=== PATIENT | male | born 1965 | race Caucasian/White ===

== ENCOUNTER 2021-08-26 09:24 | Inpatient (IN) | payer BC ==
[2021-08-26 09:59] LABS: Absolute Lymphocytes (CBC) 1.5 K/uL (0.7-4.9); Hematocrit 42.6 % (39.6-49.0); Lymphocytes % 17.2 % (15.3-44.8); MPV 9.4 fL (7.6-11.3); Protime INR 0.97; RBC Red Blood Cell Count 4.56 M/uL (4.33-5.43)
[2021-08-26 10:15] LABS: Albumin 2.8 g/dL (3.4-5.0); Bilirubin Direct 0.1 mg/dL (0-0.2); Bilirubin Total 0.5 mg/dL (0.2-1.0); Magnesium 2.3 mg/dL (1.8-2.4); Potassium 3.7 mmol/L (3.5-5.1); Protein, Total 7.2 g/dL (6.4-8.2)
[2021-08-26 10:17] LABS: Troponin High Sensitivity 5877.5 pg/mL (<58.9)
--- NOTE | 2021-08-26 10:24 | EDPHYS ---
Physician Documentation [facility] Name: Tano You Age: 56 yrs Sex: Male : 1965 Arrival Date: 08/26/2021 Time: 09:27 Bed 30 Private MD: Yuniel Whaley ED Physician Pravin Boles HPI: 08/26 10:24 This 56 yrs old Male presents to ER via Ambulatory with complaints of Abnormal Stress kdr Test. 10:24 Patient states that this last Sunday at about 10 PM he started to have some left-sided kdr chest discomfort it was mild in nature. He did not take any action at that time but did go to bed and when he awoke the next morning he was still having the chest discomfort. That pain lasted until about 10 AM that day so total of about 12 hours. Since then he has had no further chest pain but did present to Dr. Butcher's office earlier today with that history. Dr. 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 Number nonspecific ST changes. Dr. Butcher sent the patient to the ED for further evaluation and admission. His plan was to take the patient to the General Sales Manager this afternoon at 3 PM. The patient on initial presentation is nontoxic and not in any acute distress is having no pain at this time. At worst, the pain was about an 8 out of 10 on Sunday. Again at this time pain is 0 out of 10. Onset: The symptoms/episode began/occurred This week. Severity of symptoms: At their worst the symptoms were severe On Sunday evening, in the emergency department the symptoms have resolved Sunday morning at 10 AM. The patient has not experienced similar symptoms in the past. The patient has been recently seen by a physician: Patient was seen in Dr. Butcher's office this morning and sent to the ED for admission. Historical: - Allergies: 09:41 No Known Allergies; ap3 - PMHx: 09:41 Diabetes mellitus; ap3 - Immunization history:: Client reports receiving the 2nd dose of the Covid vaccine. - Social history:: Smoking status: Patient denies any tobacco usage or history of. ROS: 10:24 Constitutional: Negative for fever, chills, and weight loss, Eyes: Negative for injury, kdr pain, redness, and discharge, ENT: Negative for injury, pain, and discharge, Neck: Negative for injury, pain, and swelling, Respiratory: Negative for shortness of breath, cough, wheezing, and pleuritic chest pain, Abdomen/GI: Negative for abdominal pain, nausea, vomiting, diarrhea, and constipation, Back: Negative for injury and pain, : Negative for injury, bleeding, discharge, and swelling, MS/Extremity: Negative for injury and deformity, Skin: Negative for injury, rash, and discoloration, Neuro: Negative for headache, weakness, numbness, tingling, and seizure activity. Psych: Negative for depression, anxiety, suicide ideation, homicidal ideation, and hallucinations, Allergy/Immunology: Negative for hives, rash, and allergies, Endocrine: Negative for neck swelling, polydipsia, polyuria, polyphagia, and marked weight changes, Hematologic/Lymphatic: Negative for swollen nodes, abnormal bleeding, and unusual bruising. 10:24 Cardiovascular: Positive for chest pain, Negative for edema, orthopnea, palpitations, paroxysmal nocturnal dyspnea. Exam: 10:24 Constitutional: This is a well developed, well nourished patient who is awake, alert, kdr and in no acute distress. Head/Face: Normocephalic, atraumatic. Eyes: Pupils equal round and reactive to light, extra-ocular motions intact. Lids and lashes normal. Conjunctiva and sclera are non-icteric and not injected. Cornea within normal limits. Periorbital areas with no swelling, redness, or edema. Neck: Trachea midline, no thyromegaly or masses palpated, and no cervical lymphadenopathy. Supple, full range of motion without nuchal rigidity, or vertebral point tenderness. No Meningismus. Chest/axilla: Normal chest wall appearance and motion. Nontender with no deformity. No lesions are appreciated. Cardiovascular: Regular rate and rhythm with a normal S1 and S2. No gallops, murmurs, or rubs. Normal PMI, no JVD. No pulse deficits. Respiratory: Lungs have equal breath sounds bilaterally, clear to auscultation and percussion. No rales, rhonchi or wheezes noted. No increased work of breathing, no retractions or nasal flaring. Abdomen/GI: Soft, non-tender, with normal bowel sounds. No distension or tympany. No guarding or rebound. No evidence of tenderness throughout. Back: No spinal tenderness. No costovertebral tenderness. Full range of motion. Skin: Warm, dry with normal turgor. Normal color with no rashes, no lesions, and no evidence of cellulitis. MS/ Extremity: Pulses equal, no cyanosis. Neurovascular intact. Full, normal range of motion. Neuro: Awake and alert, GCS 15, oriented to person, place, time, and situation. Cranial nerves II-XII grossly intact. Motor strength 5/5 in all extremities. Sensory grossly intact. Cerebellar exam normal. Normal gait. Psych: Awake, alert, with orientation to person, place and time. Behavior, mood, and affect are within normal limits. Vital Signs: 09:39 BP 137 / 80; Pulse 98; Resp 17; Temp 98.8; Pulse Ox 98% on R/A; Weight 78.93 kg; Height ap3 5 ft. 5 in. (165.10 cm); 09:49 BP 121 / 76; Pulse 94; Resp 18; Pulse Ox 97% ; Pain 0/10; jh6 09:39 Body Mass Index 28.95 (78.93 kg, 165.10 cm) ap3 MDM: 10:24 Patient medically screened. kdr 10:24 Data reviewed: vital signs, nurses notes, lab test result(s), EKG, radiologic studies. kdr Counseling: I had a detailed discussion with the patient and/or guardian regarding: the historical points, exam findings, and any diagnostic results supporting the discharge/admit diagnosis, lab results, radiology results, the need for further work-up and treatment in the hospital. Physician consultation: Estiven Butcher MD and will see patient in ED. 08/26 09:42 Order name: Basic Metabolic Panel; Complete Time: 10:18 kdr 08/26 09:42 Order name: CBC with Diff; Complete Time: 10:18 kdr 08/26 09:42 Order name: LFT's; Complete Time: 10:18 kdr 08/26 09:42 Order name: Magnesium; Complete Time: 10:18 kdr 08/26 09:42 Order name: NT PRO-BNP; Complete Time: 10:18 kdr 08/26 09:42 Order name: PT-INR; Complete Time: 10:18 kdr 08/26 09:42 Order name: Troponin HS; Complete Time: 10:18 kdr 08/26 09:42 Order name: XRAY Chest (1 view) [facility] 08/26 09:42 Order name: EKG; Complete Time: 09:43 kdr 08/26 09:50 Order name: COVID-19/FLU A+B (Document "Date of Onset" if Symptomatic) jl7 08/26 10:27 Order name: CONS Physician Consult [facility] 08/26 10:27 Order name: Heart Healthy [facility] 08/26 10:27 Order name: Echo with Doppler [facility] 08/26 13:49 Order name: Glucose, Ancillary Testing [facility] 08/26 09:42 Order name: Cardiac monitoring; Complete Time: 09:42 kdr 08/26 09:42 Order name: EKG - Nurse/Tech; Complete Time: 09:42 kdr 08/26 09:42 Order name: IV Saline Lock; Complete Time: 10:04 kdr 08/26 09:42 Order name: Labs collected and sent; Complete Time: 10:04 kdr 08/26 09:42 Order name: O2 Per Protocol; Complete Time: 09:42 kdr 08/26 09:42 Order name: O2 Sat Monitoring; Complete Time: 09:42 kdr Administered Medications: No medications were administered Disposition Summary: 08/26/21 10:24 Hospitalization Ordered Hospitalization Status: Inpatient Admission kdr Provider: Judith Zavala Location: Telemetry/MedSurg (Inpatient) kdr Condition: Fair kdr Problem: an ongoing problem kdr Symptoms: are unchanged kdr Bed/Room Type: Standard kdr Room Assignment: kdr Diagnosis - Subsequent non-ST elevation (NSTEMI) myocardial infarction kdr Forms: - Medication Reconciliation Form kdr - SBAR form kdr Signatures: Dispatcher [employer] [facility] Pravin Boles MD MD kdr Lory Monroy RN RN ap3
--- NOTE | 2021-08-26 10:24 | ER ---
Nurse's Notes [facility] Name: Tano You Age: 56 yrs Sex: Male : 1965 Arrival Date: 08/26/2021 Time: 09:27 Bed 30 Private MD: Yuniel Whaley Diagnosis: Subsequent non-ST elevation (NSTEMI) myocardial infarction Presentation: 08/26 09:39 Chief complaint: Patient states: they were sent from their cardiologists office for an ap3 abnormal EKG. Patient denies chest pain and shortness of breath at this time. Coronavirus screen: At this time, the client does not indicate any symptoms associated with coronavirus-19. Ebola Screen: No symptoms or risks identified at this time. Initial Sepsis Screen: Does the patient meet any 2 criteria? No. Patient's initial sepsis screen is negative. Does the patient have a suspected source of infection? No. Patient's initial sepsis screen is negative. Risk Assessment: Do you want to hurt yourself or someone else? Patient reports no desire to harm self or others. Onset of symptoms was August 26, 2021. 09:39 Method Of Arrival: Ambulatory ap3 09:39 Acuity: LOREN 3 ap3 Triage Assessment: 09:42 General: Appears in no apparent distress. Behavior is calm, cooperative, appropriate ap3 for age. Pain: Denies pain. Neuro: Level of Consciousness is awake, alert, obeys commands, Oriented to person, place, time, situation, Moves all extremities. Gait is steady, Speech is normal. Cardiovascular: Patient's skin is warm and dry. Respiratory: Airway is patent Respiratory effort is even, unlabored. Historical: - Allergies: 09:41 No Known Allergies; ap3 - PMHx: 09:41 Diabetes mellitus; ap3 - Immunization history:: Client reports receiving the 2nd dose of the Covid vaccine. - Social history:: Smoking status: Patient denies any tobacco usage or history of. Screenin:41 Abuse screen: Denies threats or abuse. Nutritional screening: No deficits noted. ap3 Tuberculosis screening: No symptoms or risk factors identified. 09:50 Fall Risk None identified. IV access (20 points). jh6 Assessment: 09:48 General: Appears in no apparent distress. Behavior is calm, cooperative, Smells of. jh6 Pain: Denies pain. Cardiovascular: No deficits noted. Reports chest pain, heartburn was noted Sunday night and sent over to hospital this am after going in for stress test and ekg noted to be abnormal. Vital Signs: 09:39 BP 137 / 80; Pulse 98; Resp 17; Temp 98.8; Pulse Ox 98% on R/A; Weight 78.93 kg; Height ap3 5 ft. 5 in. (165.10 cm); 09:49 BP 121 / 76; Pulse 94; Resp 18; Pulse Ox 97% ; Pain 0/10; jh6 09:39 Body Mass Index 28.95 (78.93 kg, 165.10 cm) ap3 Vitals: 09:49 Cardiac Rhythm Assessment Regular. 6 ED Course: 09:27 Patient arrived in ED. mr 09:27 Yuniel Whaley MD is Private Physician. mr 09:34 Olga Parr, NICK is Primary Nurse. jh6 09:41 Triage completed. ap3 09:41 Pravin Boles MD is Attending Physician. kdr 09:41 Arm band placed on right wrist. ap3 09:41 Patient has correct armband on for positive identification. Placed in gown. Bed in low ap3 position. Call light in reach. Side rails up X2. Adult w/ patient. monitoring and evaluation advisor on. Pulse ox on. NIBP on. Door closed. Noise minimized. 09:42 EKG completed in triage. Results shown to MD. ap3 09:49 Inserted saline lock: 18 gauge in right antecubital area, using aseptic technique. jh6 10:04 XRAY Chest (1 view) Sent. jh6 10:17 XRAY Chest (1 view) In Process Unspecified. EDMS 10:23 Judith Zavala MD is Hospitalizing Provider. kdr Administered Medications: No medications were administered Outcome: 10:24 Decision to Hospitalize by Provider. kdr 14:17 Admitted to Product Mgmt Dev Manager accompanied by nurse, family with patient, via stretcher, with [facility] oxygen, on monitor, with chart. 14:17 Condition: good 14:17 Instructed on the need for admit, Demonstrated understanding of instructions. 14:18 Patient left the ED. [facility] Signatures: Dispatcher [employer] EDMS Pravin Boles MD MD [facility] Keyla James mr Lory Monroy RN RN ap3 Lili Parrfer, RN RN jh6
--- NOTE | 2021-08-26 10:33 | RAD REPORT ---
EXAM DESCRIPTION: RAD - Chest Single View - 08/26/2021 10:18 am CLINICAL HISTORY: Abnormal stress test Chest pain. COMPARISON: No comparisons FINDINGS: Portable technique limits examination quality. The lungs are grossly clear. The heart is normal in size. No displaced fractures. IMPRESSION: No acute intrathoracic process suspected.
[2021-08-26] MEDS ORDERED: HEPARIN/D5W 25,000 UNIT/500 ML BAG IV SCH ×2 (11:00→12:00)
[2021-08-26 11:17] LABS: SARS-COV-2 RT PCR NEGATIVE (NEGATIVE)
[2021-08-26] MEDS ORDERED: HEPARIN/D5W 25,000 UNIT/500 ML BAG IV ONE (11:49)
[2021-08-26 12:06] VITALS: BMI 27.1
[2021-08-26] MEDS ORDERED: HEPA 1000U/500MLS 0 UNIT/0 ML BAG IV ONE (13:42)
[2021-08-26] MEDS ORDERED: NA CHLORIDE 0.9% 500 ML ONE (14:16)
[2021-08-26] MEDS ORDERED: NITROGLYCERIN 100 MCG/ML SYR (for cath lab use only) IV ONE (14:25)
[2021-08-26] MEDS ORDERED: HEPARIN 5000 UNIT/ML 1 ML VIAL ONE (14:25)
[2021-08-26] MEDS ORDERED: NITROGLYCERIN/D5W 25 MG/250 ML BTL IV ONE (14:25)
[2021-08-26] MEDS ORDERED: VERAPAMIL HCL 10 MG/4 ML VIAL IV ONE (14:25)
[2021-08-26 14:32] VITALS: O2SAT 97
[2021-08-26] MEDS ORDERED: FENTANYL CITR 100 MCG/2 ML ONE (14:39)
[2021-08-26] MEDS ORDERED: MIDAZOLAM HCL 2 MG/2 ML INJ ONE (14:39)
[2021-08-26] MEDS ORDERED: ATROPINE SULF 1 MG/10 ML SYR IV ONE (14:39)
[2021-08-26] MEDS ORDERED: HEPARIN 10,000 UNIT/10 ML VIAL IV ONE (14:49)
[2021-08-26] MEDS ORDERED: ASPIRIN 325 MG TAB ONE (15:19)
[2021-08-26] MEDS ORDERED: TICAGRELOR 90 MG TABLET PO ONE (15:20)
[2021-08-26] MEDS ORDERED: HEPA 1000U/500MLS 1,000 UNIT/500 ML BAG IV ONE (15:31)
[2021-08-26] MEDS ORDERED: INFLUENZA VACCINE (for 6+ mo) 0.5 ML DOSE IMVAC ONE (18:00)
[2021-08-26] MEDS ORDERED: ATORVASTATIN 80 MG TAB PO SCH (21:00)
[2021-08-26] MEDS: METOPROLOL TAR 50 MG TAB PO SCH (21:00)
[2021-08-26] MEDS ORDERED: GLUCAGON 1 MG/VIAL IM PRN (21:30)
[2021-08-26] MEDS ORDERED: D50W 25 GM/50 ML SYRINGE IV PRN (21:30)
[2021-08-26] MEDS ORDERED: ATORVASTATIN 80 MG TAB ONE (21:53)
[2021-08-26] MEDS ORDERED: METOPROLOL TAR 50 MG TAB ONE (21:53)
--- NOTE | 2021-08-27 02:42 | OP ---
Date of Procedure: 08/26/2021 Surgeon: SADI MA Procedure Performed: 1.Selective coronary angiogram. 2.Left heart catheterization. 3.Percutaneous coronary intervention of totally occluded mid left anterior descending, which is the culprit for the myocardial infarction. Indication: Acute myocardial infarction. It is likely a STEMI that started more than 12 hours ago s ede the patient was chest pain free and presented late. Access: Right radial artery 6-[place], closed with TR band. Complications: None. Bleeding: Less than 10 mL. Description Of Procedure: After risks, benefits, alternatives were explained, the patient agreed to the procedure and signed informed consent. The patient was brought into the cardiac catheterization laboratory, prepped and draped in usual sterile fashion. We gave fentanyl and Versed in incremental doses to achieve adequate moderate sedation. Moderate sedation time was 45 minutes. Then, we used p iatric micropuncture kit to access right radial artery, placed a 6-[place] slender sheath and took 5 -[place] Citizen Balm 4.0 catheter into aortic root, engaged left main and right coronary artery, took standa rd views. Then, catheter was pushed across the valve into the LV and LVEDP was measured, and pullbac k did not record any gradient. Then, gave systemic heparin to assure ACT level above 250. Gave Bril inta 180 and aspirin 325, and then took a 6-[place] Citizen XB 3.5 Guide into the aortic root, engaged left ma in, took a Runthrough wire into the LAD, easily passed the 100% occlusion. The lesion was ballooned and established good flow at the LAD. Then placed a 3.0 x 60 mm Synergy drug-eluting stent with exce llent results. HOLLIS-3 flow in the vessel at the end of the procedure. No complication. Then, remov ed the guide and the sheath, and placed TR band with good hemostasis. Findings: 1.Left main is normal. 2.LAD, proximal to midportion with luminal irregularities and then before diagonal to bifurcation, i t was 100% occluded, which is the area of the culprit of the ND, status post successful PCI as above and distally becomes with diffuse 10% to 20% stenosis. 3.Left circumflex, large vessel and supplies the inferior wall partially, so it is a codominant circ ulation. Has in the midportion 80% focal stenosis. 4.RCA is codominant circulation with diffuse luminal irregularities. 5.LVEDP was slightly elevated at 18 mmHg. Conclusion: 1.Severe mid LAD disease, 100% occluded, responsible for the acute ND, status post successful PCI wi th HOLLIS-3 flow post PCI. 2.Borderline elevated LVEDP. Plan: 1.Brilinta, aspirin, and Lipitor 80 mg with no interruption. 2.Staged PCI of the left circumflex, and please obtain echocardiogram. SR/MODL Voice ID: [id number] Report ID: [id number]
[2021-08-27] MEDS: INSULIN -REGULAR HUMAN 50 UNIT/0.5 ML ML SQ SCH ×3 (07:30→16:30)
[2021-08-27 08:28] VITALS: TEMP 97.7
[2021-08-27] MEDS: METOPROLOL TAR 50 MG TAB PO SCH (09:00)
[2021-08-27] MEDS ORDERED: TICAGRELOR 90 MG TABLET PO SCH (09:00)
[2021-08-27] MEDS ORDERED: ASPIRIN EC 81 MG TAB PO SCH (09:00)
--- NOTE | 2021-08-27 10:25 | P.HP ---
Certification for Inpatient Patient admitted to: Inpatient With expected LOS: >2 Midnights Patient will require the following post-hospital care: None Practitioner: I am a practitioner with admitting privileges, knowledge of patient current condition, hospital course, and medical plan of care. Services: Services provided to patient in accordance with Admission requirements found in Title 42 Section 412.3 of the Code of Federal Regulations Patient History Date of Service: 08/26/21 Reason for admission: ACS History of Present Illness: Patient is a 56yo who was sent to the hospital with ACS. Patient was seen by Cardiology at the office and sent to the hospital. Patient is having chest pain. Patient's troponins are elevated. Patient had a non STEMI. Patient will be taken to the cardiac cath for intervention shortly. Allergies No Known Allergies Allergy (Unverified 08/26/21 10:30) Home Medications: Aspirin [Aspirin EC 81 MG] 162 mg PO DAILY #60 tablet. 08/27/21 Atorvastatin Calcium [Lipitor] 80 mg PO BEDTIME #30 tab 08/27/21 Metoprolol Tartrate [Lopressor*] 50 mg PO BID #60 tab 08/27/21 Ticagrelor [Brilinta*] 90 mg PO BID #60 tablet 08/27/21 - Past Medical/Surgical History Has patient received pneumonia vaccine in the past: No -: HTN Past Surgical History: Patient denies surgical history - Family History Father Family History: Reviewed- Non-Contributory - Social History Smoking Status: Never smoker Alcohol use: No CD- Drugs: No Review of Systems 10-point ROS is otherwise unremarkable Physical Examination - Vital Signs Temperature: 97.7 F Blood Pressure: 103/60 Pulse: 97 Respirations: 18 Pulse Ox (%): 96 - Physical Exam General: Alert, In no apparent distress, Oriented x3 HEENT: Atraumatic, PERRLA, Mucous membr. moist/pink, EOMI, Sclerae nonicteric Neck: Supple, 2+ carotid pulse no bruit, No LAD, Without JVD or thyroid abnormality Respiratory: Clear to auscultation bilaterally, Normal air movement Cardiovascular: Regular rate/rhythm, Normal S1 S2, No murmurs Gastrointestinal: Normal bowel sounds, Soft and benign, Non-distended, No tenderness, No rebound, No guarding Musculoskeletal: No clubbing, No swelling, No tenderness Integumentary: No rashes Neurological: Normal gait, Normal speech, Normal strength at 5/5 x4 extr, Normal tone, Sensation intact, Cranial nerves 3-12 intact, Normal affect Lymphatics: No axilla or inguinal lymphadenopathy Assessment & Plan - Problems (Diagnosis) (1) ACS (acute coronary syndrome) Status: Acute (2) HTN (hypertension) Status: Acute - Plan Plan: 1. Proceed with cardiac catheterization 2. Continue with anti coagulation 3. Anti-platelet and statin therapy 4. Beta-alexis therapy 5. Echocardiogram 6. GI and DVT prophylaxis Discharge Plan: Home Plan to discharge in: Greater than 2 days - Advance Directives Does patient have a Living Will: No Does patient have a Durable POA for Healthcare: No - Code Status/Comfort Care Code Status Assessed: Yes Code Status: Full Code Critical Care: No Time Spent Managing PTS Care (In Minutes): 45
--- NOTE | 2021-08-27 21:45 | CON ---
Date of Consultation: 08/26/2021 Reason For Consultation: Acute coronary syndrome. History Of Present Illness: This is a 56-year-old male, who came to my office yesterday with generalized fatigue and shortness of breath. He had an episode of chest pain earlier this week for which he did not seek medical care. EKG showed significant ischemic changes, so I decided to admit the patient and do a coronary angiogram urgently, where I found totally occluded LAD 100%, which makes it a late presentation of STEMI. He is status post successful PCI and he has residual disease in the left circumflex, which will be attended to at a later time. Patient did very well overnight. He is chest pain free, and he feels much more energetic and on echo, his ejection fraction is 45% to 50%. Past Medical History: Hypertension. Medications: Refer reconciliation sheet for detailed list. Allergies: NO KNOWN DRUG ALLERGIES. Family History: No mature coronary artery disease or cancer. Social History: Does not smoke or drink. Does not use any drugs. Review of Systems: All systems reviewed and they were negative except for mentioned in the HPI. Physical Examination: Vital Signs: Reviewed. Head and Neck: Pupils are equal, reactive to light. Intact eye movements. No JVD. No cervical lymphadenopathy. Neck: Supple. Thyroid is not enlarged. Lungs: Clear to auscultation bilaterally. No rhonchi, rales, or crackles. No accessory muscle use. Heart: Regular rate and rhythm. No extra sounds. Abdomen: Soft, nontender. Bowel sounds positive. No organomegaly. No masses or hernia. No rigidity or rebound. Extremities: No edema, clubbing, or cyanosis. Intact pulses. Skin: No rash. Neurologic: Alert, awake, oriented x3 with no focal deficits. Investigations: Labs were reviewed. Echo showed ejection fraction is 45% to 50%. Assessment And Recommendation: 1. Acute myocardial infarction. This was a late presentation of ST-elevation myocardial infarction. The culprit was totally occluded mid left anterior descending, status post successful percutaneous coronary intervention yesterday, doing very well. His ejection fraction is still acceptable at 45% to 50%. I recommend aspirin 81 mg daily, Brilinta 90 mg twice a day, and Lipitor 80 mg at bedtime. 2. Systolic heart failure due to recent ST-elevation myocardial infarction. However, it is very mild drop in his heart function. I recommend to start him on beta-alexis. His blood pressure is on low side, so I will cut down on the metoprolol to 25 mg twice a day and from my perspective, patient can be released home and have him follow up with me in the office in a week and I will arrange for staged percutaneous coronary intervention of his left circumflex. We will plan to do it in about 3-4 weeks, and we will attempt to escalate his heart failure medications including beta alexis if his blood pressure tolerates as an outpatient and maybe introduce a low-dose JOSE ALEJANDRO inhibitor. What prevented starting all those medications before discharge is his blood pressure. 3. Dyslipidemia. Lipitor 80 mg at bedtime for life and again patient can be released to follow up with me as an outpatient. /ERASMO Voice ID: [id number] Report ID: [id number] MTDD
[2021-08-29 05:00] VITALS: BP 103/60
--- NOTE | 2021-08-29 05:01 | P.DS ---
Discharge Date: 08/27/21 Disposition: ROUTINE DISCHARGE Discharge Condition: GOOD Reason for Admission: ACS Consultations: Cardiology - Problems (1) ACS (acute coronary syndrome) Status: Acute (2) HTN (hypertension) Status: Acute Brief History of Present Illness: Patient is a 56yo who was sent to the hospital with ACS. Patient was seen by Cardiology at the office and sent to the hospital. Patient is having chest pain. Patient's troponins are elevated. Patient had a non STEMI. Patient will be taken to the cardiac cath for intervention shortly. Hospital Course: Patient is clinically doing well. Patient had a stent placed in the LAD. Patient still needs a stent in the left circumflex. Patient will follow with Cardiology on Sunday for outpatient follow-up. At this time, patient is stable for discharge home. Vital Signs/Physical Exam: Temp Pulse Resp BP Pulse Ox 97.7 F 97 H 18 103/60 96 08/29/21 04:59 08/29/21 04:59 08/29/21 04:59 08/29/21 04:59 08/29/21 04:59 General: Alert, In no apparent distress, Oriented x3 Laboratory Data at Discharge: WBC 8.80 K/uL (4.3-10.9) 08/26/21 09:45 Hgb 14.1 g/dL (13.6-17.9) 08/26/21 09:45 Hct 42.6 % (39.6-49.0) 08/26/21 09:45 Plt Count 179 K/uL (152-406) 08/26/21 09:45 PT 11.2 SECONDS (9.5-12.5) 08/26/21 09:45 INR 0.97 08/26/21 09:45 Sodium 137 mmol/L (136-145) 08/26/21 09:45 Potassium 3.7 mmol/L (3.5-5.1) 08/26/21 09:45 BUN 25 mg/dL (7-18) H 08/26/21 09:45 Creatinine 1.21 mg/dL (0.55-1.3) 08/26/21 09:45 Glucose 277 mg/dL (74-106) H 08/26/21 09:45 Magnesium 2.3 mg/dL (1.8-2.4) 08/26/21 09:45 Total Bilirubin 0.5 mg/dL (0.2-1.0) 08/26/21 09:45 AST 36 U/L (15-37) 08/26/21 09:45 ALT 32 U/L (12-78) 08/26/21 09:45 Alkaline Phosphatase 106 U/L (45-117) 08/26/21 09:45 Triglycerides 150 mg/dL (<150) 08/27/21 05:22 Cholesterol 211 mg/dL (<200) H 08/27/21 05:22 HDL Cholesterol 36 mg/dL (40-60) L 08/27/21 05:22 Cholesterol/HDL Ratio 5.86 08/27/21 05:22 Home Medications: Aspirin [Aspirin EC 81 MG] 162 mg PO DAILY #60 tablet. 08/27/21 Atorvastatin Calcium [Lipitor] 80 mg PO BEDTIME #30 tab 08/27/21 Metoprolol Tartrate [Lopressor*] 50 mg PO BID #60 tab 08/27/21 Ticagrelor [Brilinta*] 90 mg PO BID #60 tablet 08/27/21 New Medications: Aspirin [Aspirin EC 81 MG] 162 mg PO DAILY #60 tablet. Ticagrelor [Brilinta*] 90 mg PO BID #60 tablet Atorvastatin Calcium [Lipitor] 80 mg PO BEDTIME #30 tab Metoprolol Tartrate [Lopressor*] 50 mg PO BID #60 tab Physician Discharge Instructions: OK TO DC IV AND DC HOME FOLLOW-UP WITH PRIMARY CARE PROVIDER IN 1-2 WEEKS FOLLOW-UP WITH CARDIOLOGY IN 1-2 WEEKS RETURN TO THE ER IF symptoms worsen CALL or TEXT DR. TONEY AT [phone] IF ANY QUESTIONS REGARDING HOSPITAL STAY. PLEASE CALL THE FLOOR AT [phone] IF ANY MEDICATION OR NURSING QUESTIONS. Diet: AHA Activity: Fall precautions Followup: Yuniel Whaley MD [Primary Care Provider] - 1-2 Weeks Estiven Butcher MD [ACTIVE - CAN ADMIT] - 1-2 Weeks Time spent managing pt's care (in minutes): 35
--- NOTE | 2021-08-29 08:30 | ECHO ---
HEIGHT: 5 ft 4 in WEIGHT: 158 lb 6.4 oz DATE OF STUDY: 08/26/[address]: Judith Zavala MD 2-DIMENSIONAL: YES M.MODE: YES DOPPLER: YES COLOR FLOW: YES TDS: PORTABLE: DEFINITY: BUBBLE STUDY: DIAGNOSIS: ACUTE CORNARY SYNDROME CARDIAC HISTORY: CATHERIZATION: SURGERY: PROSTHETIC VALVE: PACEMAKER: MEASUREMENTS (cm) DIASTOLIC (NORMALS) SYSTOLIC (NORMALS) IVSd 1.0 (0.6-1.2) LA Diam 3.2 (1.9-4.0) LVEF 45-50% LVIDd 4.1 (3.5-5.7) LVIDs 2.9 (2.0-3.5) %FS 31% LVPWd 1.0 (0.6-1.2) Ao Diam 3.1 (2.0-3.7) 2 DIMENSIONAL ASSESSMENT: RIGHT ATRIUM: NORMAL LEFT ATRIUM: NORMAL RIGHT VENTRICLE: NORMAL LEFT VENTRICLE: DEPRESSED TRICUSPID VALVE: NORMAL MITRAL VALVE: NORMAL PULMONIC VALVE: NORMAL AORTIC VALVE: NORMAL PERICARDIAL EFFUSION: NONE AORTIC ROOT: NORMAL LEFT VENTRICULAR WALL MOTION: APICAL HYPOKINESIS DOPPLER/COLOR FLOW: COMMENTS: MILDLY DEPRESSED LEFT VENTRICULAR EJECTION FRACTION 45-50%. MILD DISTAL ANTERIOR AND DISTAL ANTEROSEPTAL AND APICAL HYPOKINESIS. TECHNOLOGIST: JUAN SMALL
== END 2021-08-27 20:39 | disposition home or self-care (01) | DRG 246 ==
LOC: ER 09:24 → ERHOLD 10:46 → UNDOADMIN 10:46 → CCL 14:28 → ERHOLD 16:46 → 2ND 16:50
PROVIDERS: ADMIT Hospitalist; ATTEND Hospitalist
PROC: 4A023N7 Measurement of Cardiac Sampling and Pressure, Left Heart, Percutaneous Approach (ICD-10-PCS; principal; 2021-08-26)
PROC: 027034Z Dilation of Coronary Artery, One Artery with Drug-eluting Intraluminal Device, Percutaneous Approach (ICD-10-PCS; 2021-08-26)
PROC: B205YZZ Plain Radiography of Left Heart using Other Contrast (ICD-10-PCS; 2021-08-26)
DX: I21.4 Non-ST elevation (NSTEMI) myocardial infarction (principal); I50.21 Acute systolic (congestive) heart failure; I11.0 Hypertensive heart disease with heart failure; E78.5 Hyperlipidemia, unspecified; I25.10 Atherosclerotic heart disease of native coronary artery without angina pectoris; Z20.822 Contact with and (suspected) exposure to COVID-19
CPT/HCPCS: 0240U; 36415; 71045; 80048; 80061; 80076; 82947; 83735; 83880; 84484; 85025; 85610; 92928; 93005; 93306; 93458; 99285; C1725; C1893; J1644; J2250; J3010; J7040

== ENCOUNTER 2021-09-15 10:00 | Day surgery (SDC) | payer BC ==
[2021-09-08 13:27] LABS: Absolute Lymphocytes (CBC) 1.8 K/uL (0.7-4.9); Lymphocytes % 25.2 % (15.3-44.8); MPV 8.2 fL (7.6-11.3); RBC Red Blood Cell Count 4.62 M/uL (4.33-5.43)
[2021-09-08 13:31] LABS: Protime INR 0.97
[2021-09-08 13:41] LABS: Potassium 4.5 mmol/L (3.5-5.1)
[2021-09-15] MEDS ORDERED: NA CHLORIDE 0.9% 500 ML ONE (10:30)
[2021-09-15] MEDS ORDERED: LIDOCAINE 1% 20 ML MDV ONE (10:44)
[2021-09-15] MEDS ORDERED: HEPA 1000U/500MLS 2,000 UNIT/1,000 ML BAG IV ONE (10:44)
[2021-09-15 11:45] VITALS: TEMP 98
[2021-09-15] MEDS ORDERED: FENTANYL CITR 100 MCG/2 ML ONE (11:53)
[2021-09-15] MEDS ORDERED: HEPARIN 5000 UNIT/ML 1 ML VIAL ONE ×2 (11:53→12:17)
[2021-09-15] MEDS ORDERED: NITROGLYCERIN/D5W 25 MG/250 ML BTL IV ONE (11:54)
[2021-09-15] MEDS ORDERED: ATROPINE SULF 1 MG/10 ML SYR IV ONE (11:54)
[2021-09-15] MEDS ORDERED: NITROGLYCERIN 100 MCG/ML SYR (for cath lab use only) IV ONE (11:54)
[2021-09-15] MEDS ORDERED: VERAPAMIL HCL 10 MG/4 ML VIAL IV ONE (11:54)
[2021-09-15] MEDS ORDERED: HEPARIN 10,000 UNIT/10 ML VIAL IV ONE (11:54)
[2021-09-15] MEDS ORDERED: MIDAZOLAM HCL 2 MG/2 ML INJ ONE (11:54)
[2021-09-15] MEDS ORDERED: ASPIRIN 325 MG TAB ONE (12:17)
[2021-09-15] MEDS ORDERED: HEPA 1000U/500MLS 1,000 UNIT/500 ML BAG IV ONE (14:28)
[2021-09-15 17:01] VITALS: BP 108/67; O2SAT 99
--- NOTE | 2021-09-16 00:54 | OP ---
Date of Procedure: 09/15/2021 Surgeon: SADI MA Procedure Performed: 1.Selective coronary angiogram. 2.Percutaneous coronary intervention of severe known mid left circumflex stenosis. Used 2.75 x 60 m m Synergy drug-eluting stent. Access: Right femoral artery 6-Somali, closed with 6-Somali Angio-Seal. Complications: None. Bleeding: Less than 10 mL. Description Of Procedure: After risks, benefits, and alternatives were explained, the patient agreed to proceed and signed informed consent. Then, we gave Versed and fentanyl in incremental doses to a chieve adequate moderate sedation and accessed right femoral artery using micropuncture kit and ultra sound, and placed a 6-Somali [place] sheath and took 6-Somali XB 3.5 guide into the aortic root, eng aged left main and took standard views and then gave heparin to assure ACT level above 250 and took s hort Runthrough wire into the left circumflex. Lesion was pre-dilated and then placed 2.75 x 60 mm S ynergy drug-eluting stent with good apposition and reducing the occlusion to 0%. I then removed the wire and the guide and the sheath, and placed a 6-Somali Angio-Seal for closure with good hemostasis. Findings: 1.Left main is normal. 2.LAD, proximally diffuse 20% stenosis and patent LAD stent. Then, distally has luminal irregularit ies. Diagonal branches have luminal irregularities. 3.Left circumflex has mid 70% stenosis, status post successful PCI as above. Conclusion: 1.Patent LAD stent. 2.Severe mid left circumflex stenosis 70%, status post successful PCI as above. Plan: Continue Brilinta, aspirin, and high dose statin. SR/MODL Voice ID: [id number] Report ID: [id number]
== END 2021-09-15 16:50 | disposition home or self-care (01) ==
LOC: CCL 10:00
PROVIDERS: ATTEND Internal Medicine
DX: I25.10 Atherosclerotic heart disease of native coronary artery without angina pectoris (principal); I50.9 Heart failure, unspecified; E11.9 Type 2 diabetes mellitus without complications; E78.5 Hyperlipidemia, unspecified; Z95.5 Presence of coronary angioplasty implant and graft; Z20.822 Contact with and (suspected) exposure to COVID-19; Z82.49 Family history of ischemic heart disease and other diseases of the circulatory system
CPT/HCPCS: 93005; 85025; 80048; 36415; 85610; 82947 ×2; 85730; 92928; 93454; U0003 ×2; C1893; C1760; C1725; J1644 ×4; J2250; J3010; J7040; 85347